=== PATIENT | female | born 1960 | race Caucasian/White ===

== ENCOUNTER 2018-05-22 14:04 | Emergency (ER) | payer MEDICAID ==
[~2018-05-22] VITALS: Ht 162.6 cm; Wt 102.3 kg
[~2018-05-22 14:04] MED LIST: AMIT100T PO; CEFD300C37 PO; CELE200C PO; DULO60CA7 PO; GABA600T7 PO; LANS15CA5 PO; LEVO137T3 PO; LORA-446 PO; MECL25TA4 PO; MELO15TA24 PO; SERT50TA PO; SUMA100T3 PO
[2018-05-22 14:15] VITALS: BP 122/83
[2018-05-22] MEDS ORDERED: HYDROcodone/APAP 5/325 TABLET ONE (14:56)
[2018-05-22] MEDS ORDERED: HYDROcodone/APAP 5/325 TABLET PO ONE (15:00)
--- NOTE | 2018-05-22 15:39 | NUR ---
Patient/Caregiver given discharge instructions and they have confirmed that they understand the instructions. Patient ambulatory with steady gait.
== END 2018-05-22 15:40 | disposition home or self-care (01) ==
LOC: ED 15:34
DX: S93.401A Sprain of unspecified ligament of right ankle, initial encounter (principal); M19.90 Unspecified osteoarthritis, unspecified site; G43.909 Migraine, unspecified, not intractable, without status migrainosus; Z88.1 Allergy status to other antibiotic agents; Z85.3 Personal history of malignant neoplasm of breast; X50.1XXA Overexertion from prolonged static or awkward postures, initial encounter; Y93.01 Activity, walking, marching and hiking; Y92.410 Unspecified street and highway as the place of occurrence of the external cause; Y99.8 Other external cause status
CPT/HCPCS: 99283